=== PATIENT | female | born 2000 | race Hispanic/Latino ===

== ENCOUNTER 2020-10-23 06:12 | Emergency (ER) | payer SELFPAY ==
[2020-10-23] MEDS ORDERED: Boostrix 0.5 ML (Tdap) VIAL ONE (06:33)
[2020-10-23] MEDS ORDERED: Lidocaine 1% (PF) 30 ML VIAL ONE (06:49)
== END 2020-10-23 08:02 | disposition home or self-care (01) ==
LOC: ERS 06:12
DX: S61.212A Laceration without foreign body of right middle finger without damage to nail, initial encounter (principal); Z23 Encounter for immunization; W25.XXXA Contact with sharp glass, initial encounter
CPT/HCPCS: 12001; 90471; 90715; J2001

== ENCOUNTER 2023-02-27 14:02 | Outpatient (CLI) | payer OTHER | END 2023-02-27 14:03 | disposition home or self-care (01) | LOC: BICULT 14:02 | PROVIDERS: ATTEND Advanced Practice Midwife | DX: R93.89 Abnormal findings on diagnostic imaging of other specified body structures (principal) | CPT/HCPCS: 76856 ==